=== PATIENT | male | born 1975 | race Caucasian/White ===

== ENCOUNTER 2023-08-22 08:55 | Day surgery (SDC) | payer OTHER ==
[~2023-08-22] VITALS: Ht 167.6 cm; Wt 108.9 kg
[2023-08-22] MEDS ORDERED: LIDOCAINE 2% 100 MG/5 ML UJET TP ONE (09:42)
[2023-08-22] MEDS ORDERED: fentaNYL citrate 0.05 MG/ML VIAL ONE (09:42)
[2023-08-22] MEDS ORDERED: diphenhydrAMINE 50 MG/ML VIAL ONE (09:42)
[2023-08-22] MEDS ORDERED: MIDAZOLAM 5 MG/5 ML VIAL ONE (09:42)
== END 2023-08-22 10:58 | disposition home or self-care (01) ==
LOC: MOR 08:55 → MMU 08:59 → MOR 10:58
PROVIDERS: ATTEND Internal Medicine Gastroenterology
DX: Z12.11 Encounter for screening for malignant neoplasm of colon (principal); E11.9 Type 2 diabetes mellitus without complications; E66.9 Obesity, unspecified; Z68.38 Body mass index [BMI] 38.0-38.9, adult; Z87.891 Personal history of nicotine dependence; Z79.84 Long term (current) use of oral hypoglycemic drugs; Z79.899 Other long term (current) drug therapy
CPT/HCPCS: 82948; J1200; J2250; J3010